=== PATIENT | female | born 1960 | race Caucasian/White ===

== ENCOUNTER 2024-08-30 11:31 | Emergency (ER) | payer OTHER, SELFPAY ==
--- NOTE | ~2024-08-30 | XR_ITS ---
EXAMINATION: XR heel RT min 2V DATE: 08/30/2024 12:14 INDICATION: Right heel pain. Injury. TECHNIQUE: 2 views of right calcaneus were obtained. COMPARISON: None. FINDINGS: Alignment is normal. No fracture. Joint spaces are normal. There are enthesophytes at the p osterior and plantar aspects of calcaneal tuberosity. IMPRESSION: 1. No fracture. Reviewed, dictated and finalized at location [employer] IMPRESSION: 1. No fracture.
--- NOTE | 2024-08-30 11:34 | ED_ITS ---
HPI - Extremity Injury (Lower) General Chief Complaint: Extremity Problem,Nontraumatic Stated Complaint: Right Foot Injury Time Seen by Provider: 08/30/24 11:34 Source: patient Mode of arrival: ambulatory Limitations: no limitations History of Present Illness HPI Narrative: Zeny is a 64-year-old female patient presenting to the clinic today with complaints of right foot injury/foot pain. She reports she was walking at the [place] [facility] yesterday and tripped and injured her heel. Has having pain to the posterior heel. States she landed on the lateral side of her foot. Is having pain with weight-bearing over the heel. Feels as though the area swollen. She has been using a cane today to help her walk Related Data Home Medications Medication Instructions Recorded Confirmed atorvastatin 20 mg tablet 20 mg DIRECTED 08/30/24 08/30/24 blood sugar diagnostic (Formerly named [facility] 08/30/24 08/30/24 Lite Strips) blood-glucose meter (Formerly named [facility] 08/30/24 08/30/24 Lite Meter kit) cholecalciferol (vitamin D3) 50 50 mcg PO DAILY 08/30/24 08/30/24 mcg/drop (2,000 unit/drop) oral drops cyclosporine 0.05 % eye drops in a 1 drp DIRECTED 08/30/24 08/30/24 dropperette diclofenac sodium 1 % topical gel 2 g topical QID 08/30/24 08/30/24 docusate sodium 100 mg capsule 100 mg PO BID 08/30/24 08/30/24 enalapril maleate 5 mg tablet 5 mg PO DAILY 08/30/24 08/30/24 hydrochlorothiazide 25 mg tablet 25 mg PO DAILY 08/30/24 08/30/24 [facility] 08/30/24 Lancets) multivit with minerals-iron 18 1 tablet PO DAILY 08/30/24 08/30/24 mg-folic ac 400 mcg-vit K 25 mcg tablet (Adults Multivitamin) nystatin-triamcinolone topical 1 applic topical DIRECTED 08/30/24 08/30/24 cream omega 7-jlo-qlm-fish oil 1,000 mg 1 cap PO DAILY 08/30/24 08/30/24 (120 mg-180 mg) capsule (Fish Oil) Allergies Allergy/AdvReac Type Severity Reaction Status Date / Time No Known Allergies Allergy Verified 08/30/24 11:52 Review of Systems Review of Systems: Pertinent positives per HPI. Patient denies any fever, chills, rash, headache, visual changes, dizziness, cough, runny nose, sore throat, shortness of breath, chest pain, palpitations, nausea, vomiting, diarrhea, constipation, abdominal pain, or any urinary issues. PMFSH Comments At the time of my signature, I reviewed and agree with the nursing past medical, surgical, social, and family history. There is no relevant family history pertinent to the patient complaint. Exam Narrative: General: Well-developed, well nourished, in no apparent distress Head: Normocephalic, atraumatic. Cardio: Regular rate and rhythm, s1 and s2 normal, no murmur appreciated. Resp: Clear to auscultation bilaterally, no rhonchi, rales, wheezing or rubs. Musculoskeletal: No deformity, tender to palpation over the posterior heel, pain worse with weight-bearing, grossly normal range of motion, muscle strength strong and equal, peripheral pulse strong, no edema, no cyanosis, normal gait and station Course Course Emergency Course: Portions of this record may have been created with voice recognition software. Level of Care: Express Care Visit Vital Signs Vital signs: Vital Signs Temperature 36.8 C 08/30/24 11:44 Pulse Rate 85 08/30/24 11:44 Respiratory Rate 18 08/30/24 11:44 Blood Pressure 157/72 H 08/30/24 11:44 Pulse Oximetry 97 08/30/24 11:44 Oxygen Delivery Room Air 08/30/24 11:44 Temperature 36.8 C 08/30/24 11:44 Pulse Rate 85 08/30/24 11:44 Respiratory Rate 18 08/30/24 11:44 Blood Pressure 157/72 H 08/30/24 11:44 Pulse Oximetry 97 08/30/24 11:44 Oxygen Delivery Room Air 08/30/24 11:44 Vital signs reviewed MDM - Extremity Injury (Lower) MDM Narrative Medical decision making narrative: At the time of visit patient is resting comfortably on the exam table. Patient appears to be nontoxic. Diagnostics: X-ray of the right heel was performed and was negative for any sign of fracture or malalignment. She does have a plantar and calcaneal spur. Plan: Supportive measures were discussed with the patient and they voiced understanding discharge instructions and agrees to treatment plan. Return precautions reviewed Differential Diagnosis Differential diagnosis: Likely ankle sprain and strain, ankle fracture and other (Foot fracture, foot sprain, heel contusion, heel fracture) Imaging Data Radiologist's impression: ITS Impressions Heel X-Ray 08/30/24 12:20 IMPRESSION: 1. No fracture. Discharge Plan Discharge Clinical Impression: Heel pain Qualifiers: Laterality: right Qualified Code(s): M79.671 - Pain in right foot Heel spur Qualifiers: Laterality: right Qualified Code(s): M77.31 - Calcaneal spur, right foot Contusion Qualifiers: Encounter type: initial encounter Contusion area: foot Laterality: right Qualified Code(s): S90.31XA - Contusion of right foot, initial encounter Patient Disposition: Home, Self-Care Condition: Stable Instructions: Antibiotic Form, Contusion in Adults (ED), Heel Spur (ED) Additional Instructions: X-ray is negative for any acute fracture. Does show plantar and calcaneal spurs. Rest, ice, elevate May wear Darnell wrap as needed Tylenol/motrin for pain as discussed. Gradually bear weight No running or sports until healed. Follow up with your PCP if symptoms persist more than 1 week. Prescriptions: No Action atorvastatin 20 mg tablet 20 mg DIRECTED enalapril maleate 5 mg Tablet 5 mg PO DAILY (DME) FreeStyle Lite Strips Strip MISCELLANEOUS (DME) blood-glucose meter [FreeStyle Lite Meter] Kit MISCELLANEOUS docusate sodium 100 mg Capsule 100 mg PO BID hydrochlorothiazide 25 mg Tablet 25 mg PO DAILY nystatin-triamcinolone Cream 1 applic TOPICAL DIRECTED cyclosporine 0.05 % dropperette 1 drp DIRECTED diclofenac sodium 1 % Gel 2 g TOPICAL QID Rx Instructions: apply to single elbow, wrist or hand; for hand includes palm/fingers/back of hand cholecalciferol (vitamin D3) 50 mcg/drop (2, 000 unit/drop) Drops 50 mcg PO DAILY omega 6-krh-jke-fish oil [Fish Oil] 1,000 (120-180) mg Capsule 1 cap PO DAILY (DME) lancets [FreeStyle Lancets] 28 gauge Misc MISCELLANEOUS Adults Multivitamin 18 mg iron-400 mcg-25 mcg Tablet 1 tablet PO DAILY Follow-up/Referrals: Laurie,Rachel Leone MD [Primary Care Provider] - Time of Disposition: 12:24 Quality NIHSS Nursing Documentation ED NIHSS nursing documentation: reviewed/agree
[2024-08-30 11:44] VITALS: BP 157/72; PULSE 85; RESP 18; TEMP 36.8; O2SAT 97
== END 2024-08-30 12:30 | disposition home or self-care (01) ==
PROVIDERS: Emergency Provider Nurse Practitioner Family; PCP Family Medicine
DX: M77.31 Calcaneal spur, right foot (principal); S90.31XA Contusion of right foot, initial encounter; W01.0XXA Fall on same level from slipping, tripping and stumbling without subsequent striking against object, initial encounter
CPT/HCPCS: 73650; 99203; G0463